=== PATIENT | female | born 1990 | race Caucasian/White ===

== ENCOUNTER 2022-09-23 09:14 | Outpatient (CLI) | payer OTHER, SELFPAY ==
[2022-09-23 13:56] LABS: Cholesterol* 160 mg/dL (90-199)
[2022-09-23 13:57] LABS: HDL Cholesterol* 62 mg/dL (>=50); LDL Cholesterol Calculated 88 mg/dL (<100); Triglycerides* 49 mg/dL (40-149)
[2022-09-23 14:15] LABS: Vitamin D 25 Hydroxy* 34 ng/mL (30-80)
== END 2022-09-23 09:15 | disposition home or self-care (01) ==
PROVIDERS: PCP Physician Assistant Medical; Visit Provider Registered Nurse
DX: Z01.419 Encounter for gynecological examination (general) (routine) without abnormal findings (principal); R53.83 Other fatigue; Z13.6 Encounter for screening for cardiovascular disorders
CPT/HCPCS: 80061; 82306; 84443

== ENCOUNTER 2023-08-18 17:51 | Outpatient (CLI) | payer OTHER, SELFPAY | END 2023-08-18 17:52 | disposition home or self-care (01) | PROVIDERS: PCP Physician Assistant Medical; Referring Provider Physician Assistant Medical; Visit Provider Physician Assistant | DX: R10.9 Unspecified abdominal pain (principal); K59.01 Slow transit constipation | CPT/HCPCS: 87086 ==

== ENCOUNTER 2023-08-23 18:06 | Emergency (ER) | payer OTHER, SELFPAY ==
[2023-08-23 18:13] VITALS: BP 114/69; PULSE 84; RESP 16; TEMP 36.5; O2SAT 99; BMI 29.2
[2023-08-23 18:29] LABS: Appearance Urine Clear (Clear); Bilirubin Urine Negative (Negative); Blood Urine Negative (Negative); Color Urine Yellow (Yellow); Glucose Urine Negative (Negative); Ketones Urine Negative (Negative); Leukocyte Esterase Urine Negative (Negative); Nitrite Urine Negative (Negative); Protein Urine Negative (Negative); Urobilinogen Urine 0.2 (0.2-1.0)
[2023-08-23 18:37] LABS: RBC Urine 0-2 (0-2); Squamous Epithelial Cell Urine Few (None-Few)
--- NOTE | 2023-08-23 19:09 | CRLHL7_ITS ---
For Patients: As a result of the Century Cures Act, medical imaging exams and procedure reports are released immediately into your electronic medical record. You may view this report before your referring provider. If you have questions, please contact your health care provider. INDICATION: abdominal pain, intermittent back pain, history of constipation recently and it has worsened. TECHNIQUE: CT abdomen and pelvis acquired with 83 cc Isovue 370 IV contrast. Permanently recorded images are archived. COMPARISON: None. FINDINGS: Lower chest: Partially imaged bilateral breast implants. Liver: Unremarkable. Normal in size and attenuation. No suspicious masses. Gallbladder and bile ducts: Unremarkable. No stones or inflammation. No biliary dilatation. Pancreas: Unremarkable. No mass or inflammation. Spleen: Unremarkable. Normal in size. No masses. Adrenal glands: Unremarkable. No nodules. Kidneys, Ureters, and Bladder: Unremarkable. No suspicious masses, stones, or hydronephrosis. Unremarkable ureters and bladder. GI tract: Unremarkable. Normal in caliber. No sign of inflammation. Normal appendix. Vasculature: Abdominal aorta is normal in caliber. Mesenteric arteries are patent. Lymph nodes: No lymphadenopathy. Peritoneum/Abdominal Wall: Unremarkable abdominal wall. No free air. Small amount of free fluid in the pelvic cul-de-sac, likely physiologic. Pelvis: IUD in the uterus. Crenulated cyst/follicle in the right ovary. Bones: Unremarkable for age. IMPRESSION: Small amount of free fluid in the pelvic cul-de-sac, likely physiologic, possibly on the basis of a recently ruptured right ovarian cyst/follicle. No other evidence for acute process within the abdomen and pelvis. IUD in the uterus. Please note that all CT scans at this facility use dose modulation, iterative reconstruction, and/or weight-based dosing when appropriate to reduce radiation dose to as low as reasonably achievable. Dictated by Nikunj Crowell MD @ 08/23/2023 9:03:55 PM (Electronically Signed)
--- NOTE | 2023-08-23 19:10 | ED_ITS ---
HPI - Abdominal Pain General Chief Complaint: Abdominal Pain Stated Complaint: Stomach and back pain Time Seen by Provider: 08/23/23 18:39 History of Present Illness HPI narrative: This 32-year-old female reports abdominal pain for the past week or more. She states that the pain is constant and feels like rocks in her lower abdomen and burning in her upper abdomen. Sometimes the pain radiates through to her back. She does not report any fevers. She does not care to eat food. She has had some nausea and diarrhea. She was seen in urgent care about a week or so ago and had an x-ray at that time. She was told that she had constipation. She has been taking some medicine to treat constipation but states that her symptoms have worsened. She states that pain is worse with movement and with walking and sometimes also when attempting to stand up straight. Pain is somewhat relieved when remaining still. Related Data Home Medications Medication Instructions Recorded Confirmed levonorgestrel 21 mcg/24 hours (8 1 device intrauterine ONCE 09/23/22 08/23/23 yrs) 52 mg intrauterine device (Mirena) Previous Rx's Medication Instructions Recorded escitalopram oxalate 10 mg tablet 15 mg (1.5 x 10 mg) PO QDAY #135 12/15/22 (Lexapro) tabs Allergies Allergy/AdvReac Type Severity Reaction Status Date / Time No Known Drug Allergies Allergy Verified 08/23/23 19:39 Review of Systems Status of ROS Reports: 10 or more systems reviewed and unremarkable except as noted in History and below Narrative Constitutional: No fevers, no weight gain or loss. Eyes: No discharge. No vision changes. HENT: No congestion, no sore throat, no ear pain. Cardiovascular: No chest pain, no palpitations. Respiratory: No shortness of breath, no wheezes, no cough. Gastrointestinal: Abdominal pain as described above. Genitourinary: No dysuria, no hematuria. Musculoskeletal: Normal range of motion. Skin: No rashes, no pruritis. Neurological: No dizziness, weakness, sensory change, speech change. Endo/Heme/Allergies: No bruising or bleeding. No polydipsia. Pysch: no suicidality, no anxiety, no insomnia. All other systems reviewed and are negative. [facility] Medical History Medication management ?Z79.899 - Other skilled nursing (current) drug therapy (ICD-10) Pharyngitis ?J02.9 - Acute pharyngitis, unspecified (ICD-10) Normal spontaneous vaginal delivery ?O80 - Encounter for full-term uncomplicated delivery (ICD-10) Chest wall pain, chronic (09/26/13) ?R07.89 - Other chest pain (ICD-10) ?G89.29 - Other chronic pain (ICD-10) Acute coccygeal pain ?M53.3 - Sacrococcygeal disorders, not elsewhere classified (ICD-10) Surgical History History of breast augmentation ?Z98.82 - Breast implant status (ICD-10) Social History Smoking Status: Never smoker How often do you have a drink containing alcohol: never How often do you have six or more drinks on one occasion: Never AUDIT-C Alcohol total score: 0 Non-prescribed substance use: denies use Little interest or pleasure in doing things: not at all Feeling down, depressed, or hopeless: several days Exam Narrative: Exam Narrative: Constitutional: Well-developed, well-nourished, no acute distress. HEENT: Normocephalic, atraumatic. Neck: Normal range of motion. Nontender. Supple. Heart: Regular. No murmurs. Normal rate. Intact distal pulses. Lungs: Clear to auscultation. No chest discomfort. No wheezes, rhonchi, or rales. Abdomen: Normal bowel sounds. Diffuse tenderness throughout the abdomen. Mild rebound tenderness is present. Genitalia: Deferred. Back: No midline tenderness. Normal range of motion. Extremities: Normal range of motion. No injury. Skin: Intact. No rash. Warm. No erythema or pallor. Neurologic: No altered sensation. No weakness. Alert and oriented. Psychiatric: No suicidality. No anxiety or depression. No insomnia. Nursing notes and vitals signs are reviewed. Const: Vital Signs, click to edit/add: Vital Signs - 24 hr 08/23/23 18:13 08/23/23 20:13 Temperature 97.7 F Pulse Rate [Pulse Oximeter] 84 62 Respiratory Rate 16 16 Blood Pressure [Ri ght Upper Arm] 114/69 116/70 Pulse Oximetry 99 100 Oxygen Delivery Me thod Room Air Room Air Course Vital Signs Vital signs: Initial Vital Signs Temperature 97.7 F 08/23/23 18:13 Temperature Source Temporal Artery Scan 08/23/23 18:13 Pulse Rate 84 08/23/23 18:13 Pulse Rhythm Regular 08/23/23 18:13 Respiratory Rate 16 08/23/23 18:13 Blood Pressure 114/69 08/23/23 18:13 Blood Pressure Mean 84 08/23/23 18:13 Blood Pressure Position Sitting 08/23/23 18:13 Pulse Oximetry 99 08/23/23 18:13 Oxygen Delivery Method Room Air 08/23/23 18:13 Vital Signs Temperature 97.7 F 08/23/23 18:13 Pulse Rate 84 08/23/23 18:13 Respiratory Rate 16 08/23/23 18:13 Blood Pressure 114/69 08/23/23 18:13 Pulse Oximetry 99 08/23/23 18:13 Oxygen Delivery Method Room Air 08/23/23 18:13 Temperature 97.7 F 08/23/23 18:13 Pulse Rate 62 08/23/23 20:13 Respiratory Rate 16 08/23/23 20:13 Blood Pressure 116/70 08/23/23 20:13 Pulse Oximetry 100 08/23/23 20:13 Oxygen Delivery Method Room Air 08/23/23 20:13 MDM - Abdominal Pain MDM Narrative Medical decision making narrative: This patient comes in with abdominal pain as described above. A CT scan of the abdomen and pelvis is obtained and this returns with no obvious findings to explain her pain. There is some physiologic fluid in the cul-de-sac which may represent drainage from an ovarian cyst. I did relay these results with the patient. She has normal vital signs and is in no acute distress. She is okay to be discharged home. She did received prescriptions for some tablets of Toradol and [place] from the [facility]. Lab Data Labs: Lab Results 08/23/23 08/23/23 Range/Units 18:21 19:15 WBC 7.99 (4.50-11.00) K/uL RBC 4.60 (4.00-5.20) m/uL Hgb 12.8 (12.0-16.0) gm/dL Hct 37.5 (33.0-51.0) % MCV 82 (80-100) fL MCH 28 (26-34) pg MCHC 34 (32-36) gm/dL RDW Coeff of Harley 12.6 (11.5-15.5) % Plt Count 188 (140-440) K/uL Neut % (Auto) 54.8 (42.0-72.0) % Lymph % (Auto) 36.7 (20-44) % [place] % (Auto) 6.6 (0.0-11.0) % Eos % (Auto) 1.3 (0.0-7.0) % Baso % (Auto) 0.5 (0.0-3.0) % Neut # (Auto) 4.38 (1.7-7.0) K/uL Lymph # (Auto) 2.93 H (0.90-2.90) K/uL [place] # (Auto) 0.50 (0.00-0.90) K/UL Eos # (Auto) 0.10 (0.00-0.50) K/uL Baso # (Auto) 0.04 (0.00-0.30) K/uL Abs Immat Gran (auto) 0.01 (0.00-0.30) K/uL Imm/Tot Granulo (auto) 0.1 % Sodium 139 (135-149) mmol/L Potassium 4.2 (3.6-5.1) mmol/L Chloride 107 (96-114) mmol/L Carbon Dioxide 22 (20-32) mmol/L Anion Gap 10 (7-15) mEq/L BUN 12 (5-24) mg/dL Creatinine 0.8 (0.5-1.5) mg/dL Estimated Creat Clear 85.56 Estimated GFR 99 ml/min Glucose 88 (60-115) mg/dL Calcium 9.1 (8.4-10.6) mg/dL Total Bilirubin 0.7 (0.1-1.5) mg/dL Direct Bilirubin 0.0 (0.0-0.5) mg/dL AST 17 (12-35) U/L ALT 14 (4-35) U/L Alkaline Phosphatase 64 (40-150) U/L C-Reactive Protein 0.5 (0.5-1.0) mg/dL Total Protein 7.2 (6.0-8.3) g/dL Albumin 4.3 (3.3-5.0) g/dL Lipase 99 (23-300) U/L Urine Color Yellow (Yellow) Urine Appearance Clear (Clear) Urine pH 7.0 (5.0-8.5) Ur Specific [place] 1.020 (1.000-1.030) Urine Protein Negative (Negative) Urine Glucose (UA) Negative (Negative) Urine Ketones Negative (Negative) Urine Blood Negative (Negative) Urine Nitrite Negative (Negative) Urine Bilirubin Negative (Negative) Urine Urobilinogen 0.2 (0.2-1.0) Ur Leukocyte Esterase Negative (Negative) Urine RBC 0-2 (0-2) Urine WBC 2-5 (0-5) Ur Squamous Epith Cells Few (None-Few) Urine Bacteria None (None) Imaging Data CT scan - abdomen: Radiologist's impression: Small amount of free fluid in the pelvic cul-de-sac, likely physiologic, possibly on the basis of a recently ruptured right ovarian cyst/follicle. No other evidence for acute process within the abdomen and pelvis. IUD in the uterus. Discharge Plan Discharge Clinical Impression: Abdominal pain Patient Disposition: Home, Self-Care Condition: Stable Additional Instructions: Take medication as needed and directed. Follow up with MD return if symptoms are worsening. Prescriptions: No Action Mirena 20 mcg/24 hours (8 yrs) 52 mg intrauterine device 1 device intrauterine ONCE Rx Instructions: as a single dose escitalopram oxalate [Lexapro] 10 mg tablet 15 mg PO QDAY Qty: 135 2RF Follow Up/Referrals: Mirella Chun PA-C [Primary Care Provider] - Stand Alone Forms: [employer] Info Instructions
[2023-08-23 19:24] LABS: Basophils Absolute Auto 0.04 K/uL (0.00-0.30); Basophils Percent Auto 0.5 % (0.0-3.0); Eosinophils Percent Auto 1.3 % (0.0-7.0); Hematocrit 37.5 % (33.0-51.0); Hemoglobin* 12.8 gm/dL (12.0-16.0); Immature Granulocytes Abs Auto 0.01 K/uL (0.00-0.30); Immature Granulocytes Pct Auto 0.1 %; Lymphocytes Absolute Auto 2.93 K/uL (0.90-2.90); Lymphocytes Percent Auto 36.7 % (20-44); Mean Corpuscular HGB Conc 34 gm/dL (32-36); Mean Corpuscular Hemoglobin 28 pg (26-34); Mean Corpuscular Volume 82 fL (80-100); Monocytes Percent Auto 6.6 % (0.0-11.0); Neutrophils Absolute Auto 4.38 K/uL (1.7-7.0); Neutrophils Percent Auto 54.8 % (42.0-72.0); Platelet Count* 188 K/uL (140-440); RDW Coefficient of Variation % 12.6 % (11.5-15.5); White Blood Count* 7.99 K/uL (4.50-11.00)
[2023-08-23 19:25] LABS: Slide Review Reflex No
[2023-08-23] MEDS: ONDANSETRON 2 MG/ML inj 4 MG IVP (19:31)
[2023-08-23 19:57] LABS: Albumin* 4.3 g/dL (3.3-5.0); Chloride* 107 mmol/L (96-114)
[2023-08-23 19:58] LABS: Potassium* 4.2 mmol/L (3.6-5.1); Sodium* 139 mmol/L (135-149)
[2023-08-23 20:00] LABS: Creatinine* 0.8 mg/dL (0.5-1.5); Est. Creatinine Clearance* 85.56; Estimated Glomerular Filt Rate 99 ml/min
[2023-08-23 20:01] LABS: Alanine Aminotransferase* 14 U/L (4-35); Alkaline Phosphatase* 64 U/L (40-150); Anion Gap 10 mEq/L (7-15); Aspartate Amino Transferase* 17 U/L (12-35); Bilirubin Total* 0.7 mg/dL (0.1-1.5); Blood Urea Nitrogen* 12 mg/dL (5-24); Calcium* 9.1 mg/dL (8.4-10.6); Carbon Dioxide* 22 mmol/L (20-32); Glucose* 88 mg/dL (60-115); Lipase* 99 U/L (23-300); Total Protein* 7.2 g/dL (6.0-8.3)
[2023-08-23 20:04] LABS: C Reactive Protein* 0.5 mg/dL (0.5-1.0)
[2023-08-23 20:13] VITALS: BP 116/70; PULSE 62; RESP 16; O2SAT 100
== END 2023-08-23 21:27 | disposition home or self-care (01) ==
PROVIDERS: Emergency Provider Emergency Medicine Emergency Medical Services; PCP Physician Assistant Medical
DX: R10.9 Unspecified abdominal pain (principal)
CPT/HCPCS: 36415; 74177; 80048; 80076; 81001; 83690; 85025; 86140; 96374; 99283; 99284; J2405; Q9967

== ENCOUNTER 2023-09-02 15:54 | Outpatient (CLI) | payer OTHER, SELFPAY ==
[2023-09-02 19:32] LABS: Chlamydia DNA Amplified* NOT DETECTED (No Detected); GC DNA Amplified* NOT DETECTED (No Detected)
== END 2023-09-02 15:55 | disposition home or self-care (01) ==
LOC: NFLDREF 15:55
PROVIDERS: PCP Physician Assistant Medical; Visit Provider Obstetrics & Gynecology
DX: N73.0 Acute parametritis and pelvic cellulitis (principal); R10.9 Unspecified abdominal pain
CPT/HCPCS: 87491; 87591

== ENCOUNTER 2023-09-05 15:52 | Outpatient (CLI) | payer OTHER, SELFPAY ==
--- NOTE | 2023-09-05 16:00 | CRLHL7_ITS ---
For Patients: As a result of the Century Cures Act, medical imaging exams and procedure reports are released immediately into your electronic medical record. You may view this report before your referring provider. If you have questions, please contact your health care provider. INDICATION: History of a right ovarian cyst. On going back pain. Right lower quadrant pain. TECHNIQUE: Transabdominal and transvaginal pelvic ultrasound. COMPARISON: Correlation is made with an abdominopelvic CT August 23, 2023. FINDINGS: The uterus measures 9.5 x 5.1 x 5.5 cm. There is an intrauterine device appropriately positioned. Normal-sized ovaries without torsion or mass. Small physiologic follicles The right ovary measures 3.7 x 2.4 x 2.0 cm. The left ovary measures 3.6 x 2.4 x 2.5 cm. No free pelvic fluid. IMPRESSION: Normal transabdominal and transvaginal pelvic ultrasound. IUD appropriately positioned. Dictated by Leonides Stout MD @ 09/06/2023 11:27:16 AM (Electronically Signed)
== END 2023-09-05 15:53 | disposition home or self-care (01) ==
PROVIDERS: PCP Physician Assistant Medical; Visit Provider Obstetrics & Gynecology
DX: R10.9 Unspecified abdominal pain (principal); M54.9 Dorsalgia, unspecified
CPT/HCPCS: 76830; 76856

== ENCOUNTER 2023-09-29 09:02 | Outpatient (CLI) | payer OTHER, SELFPAY | END 2023-09-29 09:03 | disposition home or self-care (01) | LOC: FRMREF 09:03 | PROVIDERS: PCP Physician Assistant Medical; Visit Provider Registered Nurse | DX: Z01.419 Encounter for gynecological examination (general) (routine) without abnormal findings (principal); R63.5 Abnormal weight gain | CPT/HCPCS: 84443 ==

== ENCOUNTER 2023-11-18 12:33 | Emergency (ER) | payer OTHER, SELFPAY ==
[2023-11-18 13:13] VITALS: BP 147/82; PULSE 72; RESP 18; TEMP 36.7; O2SAT 100; BMI 28.3
--- NOTE | 2023-11-18 15:47 | ED.GENADULT ---
HPI - General Adult General Chief complaint: Chest Pain Stated complaint: Chest pain, nausea Time Seen by Provider: 11/18/23 15:41 History of Present Illness HPI narrative: Patient is shaking in triage, appears anxious. Reports heart pain and nausea since yesterday that is constant. 33-year-old woman presenting to the emergency department with concern of chest pain. This occurred yesterday and was associated with some nausea initially started while going hard in a [place] workout. This did not involve weight's or hiit-type workout. She does these workouts regularly without difficulty. Is not exactly reproducible. Not really pleuritic. Just feels like somebody is grabbing the left side of her chest. Not really short of breath. She does acknowledge that she probably freaked out. Has been waxing and waning to some degree though longer now persistently present. No leg pain or swelling. No history of arrhythmia or coagulopathy. Does later admit that feels little bit better when she sits forward and worse when she lies back. Also endorses being particularly anxious person Related Data Home Medications Medication Instructions Recorded Confirmed levonorgestrel 21 mcg/24 hours (8 1 device intrauterine ONCE 09/23/22 10/17/23 yrs) 52 mg intrauterine device (Mirena) Previous Rx's Medication Instructions Recorded escitalopram oxalate 10 mg tablet 15 mg (1.5 x 10 mg) PO QDAY #135 09/29/23 (Lexapro) tabs azithromycin 250 mg tablet See Rx Instructions PO .COMPLEX #6 10/17/23 tabs Allergies Allergy/AdvReac Type Severity Reaction Status Date / Time No Known Drug Allergies Allergy Verified 09/29/23 08:12 Review of Systems Status of ROS: Reports: 6 or more systems reviewed and unremarkable except as noted in History and below [facility] Medical History Medication management ?Z79.899 - Other detention (current) drug therapy (ICD-10) Pharyngitis ?J02.9 - Acute pharyngitis, unspecified (ICD-10) Normal spontaneous vaginal delivery ?O80 - Encounter for full-term uncomplicated delivery (ICD-10) Chest wall pain, chronic (09/26/13) ?R07.89 - Other chest pain (ICD-10) ?G89.29 - Other chronic pain (ICD-10) Acute coccygeal pain ?M53.3 - Sacrococcygeal disorders, not elsewhere classified (ICD-10) Surgical History History of breast augmentation ?Z98.82 - Breast implant status (ICD-10) Family History Mother Osteoporosis Social History What is your current living situation?: I presently have a place to live Problems where you live: no known problems In the past 12 months, utilities in danger of being shut off: no In past 12 months, lack of transportation kept you from medical appts, meetings, work, or getting things needed for daily living: no How hard is it for you to pay for the very basics like food, housing, medical care, and heating: not very hard In the past 12 mos, have been you worried that your food would run out before you had money to buy more?: never true In the past 12 mos, the food you bought just didn't last and you didn't have money to buy more?: never true Smoking Status: Never smoker How often do you have a drink containing alcohol: never How often do you have six or more drinks on one occasion: Never AUDIT-C Alcohol total score: 0 Non-prescribed substance use: denies use How often does anyone, including family, friends and others, physically hurt you: never How often does anyone, including family, friends and others, insult or talk down to you: never How often does anyone, including family, friends and others, threaten you with harm: never How often does anyone, including family, friends and others, scream or curse at you: never Little interest or pleasure in doing things: not at all Feeling down, depressed, or hopeless: not at all Exam Narrative: Exam Narrative: Pleasant. Eyes are a little injected. She looks little tense. Mildly anxious. Breathing easily. Lungs are clear equal expansion excursion. There is no supraclavicular crepitus. Heart in a regular rate and rhythm initially I thought I heard a split S1 but on further auscultations does not seem to be present. I am not able to reproduce discomfort although maybe little sore in the epigastrium her xiphoid area. No rashes evident. Skin is warm and dry. Extremities are well perfused without edema. Const: Vital Signs, click to edit/add: Vital Signs - 24 hr 11/18/23 13:13 11/18/23 16:18 11/18/23 16:19 Temperature 98.1 F 97.9 F Pulse Rate [Pulse Oximeter] 72 63 Respiratory Rate 18 20 Blood Pressure [Ri ght Upper Arm] 147/82 H 129/108 H Pulse Oximetry 100 100 100 Oxygen Delivery Me thod Room Air Room Air Documenting provider has reviewed patient's vital signs: yes Course Vital Signs Vital signs: Initial Vital Signs Temperature 98.1 F 11/18/23 13:13 Temperature Source Temporal Artery Scan 11/18/23 13:13 Pulse Rate 72 11/18/23 13:13 Respiratory Rate 18 11/18/23 13:13 Blood Pressure 147/82 H 11/18/23 13:13 Blood Pressure Mean 103 11/18/23 13:13 Pulse Oximetry 100 11/18/23 13:13 Oxygen Delivery Method Room Air 11/18/23 13:13 Vital Signs Temperature 98.1 F 11/18/23 13:13 Pulse Rate 72 11/18/23 13:13 Respiratory Rate 18 11/18/23 13:13 Blood Pressure 147/82 H 11/18/23 13:13 Pulse Oximetry 100 11/18/23 13:13 Oxygen Delivery Method Room Air 11/18/23 13:13 Temperature 97.9 F 11/18/23 16:18 Pulse Rate 63 11/18/23 16:18 Respiratory Rate 20 11/18/23 16:18 Blood Pressure 129/108 H 11/18/23 16:18 Pulse Oximetry 100 11/18/23 16:19 Oxygen Delivery Method Room Air 11/18/23 16:18 Medical Decision Making MDM Narrative Medical decision making narrative: Differential would include pneumothorax or pneumomediastinum, doubtful pulmonary embolus, does not appear to have ischemic cardiovascular event. Did review EKG which looks quite good without ischemic changes. Normal sinus rhythm rate of 68. I suppose strained chordae tendineae could be in differential. Does not have overt signs though of heart failure. Pericarditis? though rather abrupt onset. Esophageal reflux related discomfort? Will begin with a chest x-ray and cardiac labs along with CBC. Labs are reassuring without evidence of cardiac injury or strain. EKG without evidence of pericarditis. Chest x-ray reviewed by me is WNL with normal cardiac silhouette Leonardo overall stable and little improved departed emergency department ahead of me being able to connect with Cardiology. Finally was able to discuss this case with Cardiology. They favor benign etiology. See patient discharge plan Medical Records Medical records reviewed: Yes I reviewed the patient's medical records Lab Data Lab results reviewed: Yes I reviewed the patient's lab results Labs: Lab Results 11/18/23 Range/Units 16:28 WBC 6.46 (4.50-11.00) K/uL RBC 4.85 (4.00-5.20) m/uL Hgb 13.5 (12.0-16.0) gm/dL Hct 40.6 (33.0-51.0) % MCV 84 (80-100) fL MCH 28 (26-34) pg MCHC 33 (32-36) gm/dL RDW Coeff of Harley 12.7 (11.5-15.5) % Plt Count 231 (140-440) K/uL Neut % (Auto) 55.7 (42.0-72.0) % Lymph % (Auto) 36.5 (20-44) % [place] % (Auto) 5.6 (0.0-11.0) % Eos % (Auto) 1.1 (0.0-7.0) % Baso % (Auto) 0.9 (0.0-3.0) % Neut # (Auto) 3.60 (1.7-7.0) K/uL Lymph # (Auto) 2.36 (0.90-2.90) K/uL [place] # (Auto) 0.40 (0.00-0.90) K/UL Eos # (Auto) 0.07 (0.00-0.50) K/uL Baso # (Auto) 0.06 (0.00-0.30) K/uL Abs Immat Gran (auto) 0.01 (0.00-0.30) K/uL Imm/Tot Granulo (auto) 0.2 % D-Dimer Quant (PE/DVT) < 0.27 (0.00-0.50) ug/ml Troponin I < 0.01 L (0.01-0.04) ng/mL NT-Pro-B Natriuret Pep 79 pg/mL ECG Data Attestation: I personally reviewed and interpreted this ECG as follows: (Normal sinus rhythm rate of 68. ) Discharge Plan Discharge Clinical Impression: Atypical chest pain Patient Disposition: Home, Self-Care Condition: Improved Additional Instructions: I think we're in agreement that anxiety made things a little worse but that does not explain initial onset. You may have some inflammation in your chest, possibly pericarditis, that would benefit from regular NSAID for a few days. Maybe with a little bit of food take 600 mg ibuprofen 3 times daily over the next 4-5 days. If pain persisting unchanged as you come up on a week, I would follow-up in primary care to discuss further. If pain seems to be escalating, you're increasingly short of breath maybe have associated fever, feeling lightheaded, please return to the emergency department. I will call you if Cardiology has any further recommendations for you. Prescriptions: No Action Mirena 20 mcg/24 hours (8 yrs) 52 mg intrauterine device 1 device intrauterine ONCE Rx Instructions: as a single dose azithromycin 250 mg tablet See Rx Instructions PO .COMPLEX Qty: 6 0RF Rx Instructions: For 250 mg dose pack: take 500 mg today (day 1), then 250 mg for 4 days (days 2-5) PO escitalopram oxalate [Lexapro] 10 mg tablet 15 mg PO QDAY Qty: 135 3RF Follow Up/Referrals: Mirella Chun PA-C [Primary Care Provider] - Stand Alone Forms: [employer] Info Instructions
--- NOTE | 2023-11-18 16:14 | CRLHL7_ITS ---
For Patients: As a result of the Century Cures Act, medical imaging exams and procedure reports are released immediately into your electronic medical record. You may view this report before your referring provider. If you have questions, please contact your health care provider. INDICATION: Chest pain. TECHNIQUE: Chest 1 views. COMPARISON: None. FINDINGS: Cardiovascular and mediastinum: Heart size and vasculature are normal in caliber and appearance. Lungs and pleural spaces: Lungs are clear. No sign of infiltrate or mass. No sign of pleural effusion. No pneumothorax. Bones and soft tissues: No significant findings. IMPRESSION: No acute or significant findings. Dictated by Uzair Villar MD @ 11/18/2023 6:03:04 PM (Electronically Signed)
[2023-11-18 16:18] VITALS: BP 129/108; PULSE 63; RESP 20; TEMP 36.6; O2SAT 100
[2023-11-18 16:19] VITALS: O2SAT 100
[2023-11-18 16:46] LABS: Basophils Absolute Auto 0.06 K/uL (0.00-0.30); Basophils Percent Auto 0.9 % (0.0-3.0); Eosinophils Absolute Auto 0.07 K/uL (0.00-0.50); Eosinophils Percent Auto 1.1 % (0.0-7.0); Hematocrit 40.6 % (33.0-51.0); Hemoglobin* 13.5 gm/dL (12.0-16.0); Immature Granulocytes Abs Auto 0.01 K/uL (0.00-0.30); Immature Granulocytes Pct Auto 0.2 %; Lymphocytes Absolute Auto 2.36 K/uL (0.90-2.90); Lymphocytes Percent Auto 36.5 % (20-44); Mean Corpuscular HGB Conc 33 gm/dL (32-36); Mean Corpuscular Hemoglobin 28 pg (26-34); Mean Corpuscular Volume 84 fL (80-100); Monocytes Percent Auto 5.6 % (0.0-11.0); Neutrophils Percent Auto 55.7 % (42.0-72.0); Platelet Count* 231 K/uL (140-440); RDW Coefficient of Variation % 12.7 % (11.5-15.5); Red Blood Count 4.85 m/uL (4.00-5.20); White Blood Count* 6.46 K/uL (4.50-11.00)
[2023-11-18 16:48] LABS: Slide Review Reflex No
[2023-11-18 17:09] LABS: D Dimer Quantitative* < 0.27 ug/ml (0.00-0.50); NT Pro B Type NatriureticPept* 79 pg/mL
[2023-11-18 17:11] LABS: Troponin I* < 0.01 ng/mL (0.01-0.04)
== END 2023-11-18 18:13 | disposition home or self-care (01) ==
PROVIDERS: Emergency Provider Family Medicine; PCP Physician Assistant Medical
DX: R07.89 Other chest pain (principal)
CPT/HCPCS: 36415; 71045; 83880; 84484; 85025; 85379; 94761; 99284

== ENCOUNTER 2024-03-25 10:32 | Emergency (ER) | payer OTHER, SELFPAY ==
[2024-03-25 10:35] VITALS: BP 150/81; PULSE 63; RESP 18; TEMP 36.9; O2SAT 99; BMI 29.2
--- NOTE | 2024-03-25 10:48 | US_ITS ---
Patient: RAYNE VIRGEN Facility:?[facility] RIS Patient ID:?[id number] Site Patient ID:?[id number] Site :?[id number] Study:?US-OB Pelvis TV pelvic-03/25/2024 11:53:11 AM Ordering Physician:Shannan Final Report: INDICATION: Two week history of persistent vaginal bleeding status post IUD removal. COMPARISON: 09/05/2023 TECHNIQUE: Endovaginal grayscale and color doppler pelvic ultrasound. FINDINGS: Uterus: Measures 5.9 x 4.5 x 10.0cm. Asymmetrical thickening and heterogeneity of the posterior uterine body myometrium. 2 mm simple cyst in the posterior lower uterine segment. These findings have been described in the setting of adenomyosis. No focal uterine lesion is identified. Multiple nabothian cysts are noted incidentally in the uterine cervix near the external os. Please note that US is insensitive for detection of epithelial lesions of the cervix, compared to physical examination. Endometrial stripe: Measures 3mm. Uniform in thickness. Right Ovary: Measures 2.5 x 2.5 x 4.0cm and 13mL. Incidental note is made of multiple simple right ovarian follicles, the largest measuring 1.6 cm in greatest dimension. Normal color Doppler flow. Left Ovary: Measures 3.7 x 3.4 x 4.7cm and 30mL. Dominant 2.3 cm anechoic unilocular follicle. Normal color Doppler flow. Pelvic fluid: No significant pelvic ascites. Small volume free fluid within physiologic limits of normal. IMPRESSION: Asymmetrically thickened and heterogeneous posterior uterine body myometrium and a small posterior lower uterine segment myometrial cysts may indicate adenomyosis. No other sonographic findings to explain persistent vaginal bleeding status post IUD removal. The endometrial stripe measures 3 mm in greatest thickness. Dictated by Rodríguez Calderon MD @ 03/25/2024 12:31:43 PM Signed by:?Rodríguez Calderon MD @03/25/2024 12:31:43 PM (Electronic Signature)
--- NOTE | 2024-03-25 10:51 | ED.GENADULT ---
HPI - General Adult General Chief complaint: Vaginal Bleeding Stated complaint: IUD removed 2 weeks ago, heavy bleeding/clotting Time Seen by Provider: 03/25/24 10:34 Source: patient Mode of arrival: ambulatory Limitations: no limitations History of Present Illness HPI narrative: 33-year-old female, , coming in today complaining of vaginal bleeding. Patient had a Mirena IUD removed on 03/12/2024, since then she has had which she describes as a heavy period. She states that she soaks a heavy tampon every several hours. However for 2 days now she had about a 4 hour period where she was soaking a super tampon in 15 minutes. She just feels a gush and she has significantly heavy bleed. She also states that she has been passing golf ball size clots. She is not dizzy or lightheaded. She denies chest pain or shortness of breath. Related Data Home Medications Medication Instructions Recorded Confirmed levonorgestrel 21 mcg/24 hr (up to 1 device intrauterine ONCE 09/23/22 03/12/24 8 years) 52 mg intrauterine device (Mirena) Previous Rx's Medication Instructions Recorded escitalopram oxalate 10 mg tablet 15 mg (1.5 x 10 mg) PO QDAY #135 09/29/23 (Lexapro) tabs medroxyprogesterone 10 mg tablet 10 mg PO DIRECTED #40 tabs 03/25/24 (Provera) Allergies Allergy/AdvReac Type Severity Reaction Status Date / Time No Known Drug Allergies Allergy Verified 03/25/24 10:40 Review of Systems Status of ROS: Reports: 10 or more systems reviewed and unremarkable except as noted in History and below [facility] Medical History Medication management ?Z79.899 - Other custodial (current) drug therapy (ICD-10) Pharyngitis ?J02.9 - Acute pharyngitis, unspecified (ICD-10) Normal spontaneous vaginal delivery ?O80 - Encounter for full-term uncomplicated delivery (ICD-10) Chest wall pain, chronic (09/26/13) ?R07.89 - Other chest pain (ICD-10) ?G89.29 - Other chronic pain (ICD-10) Acute coccygeal pain ?M53.3 - Sacrococcygeal disorders, not elsewhere classified (ICD-10) Surgical History History of breast augmentation ?Z98.82 - Breast implant status (ICD-10) Family History Mother Osteoporosis Social History What is your current living situation?: I presently have a place to live Problems where you live: no known problems In the past 12 months, utilities in danger of being shut off: no In past 12 months, lack of transportation kept you from medical appts, meetings, work, or getting things needed for daily living: no How hard is it for you to pay for the very basics like food, housing, medical care, and heating: not very hard In the past 12 mos, have been you worried that your food would run out before you had money to buy more?: never true In the past 12 mos, the food you bought just didn't last and you didn't have money to buy more?: never true Smoking Status: Never smoker Do you use any of these nicotine containing products: None How often do you have a drink containing alcohol: never How often do you have six or more drinks on one occasion: Never AUDIT-C Alcohol total score: 0 Non-prescribed substance use: denies use How often does anyone, including family, friends and others, physically hurt you: never How often does anyone, including family, friends and others, insult or talk down to you: never How often does anyone, including family, friends and others, threaten you with harm: never How often does anyone, including family, friends and others, scream or curse at you: never Little interest or pleasure in doing things: not at all Feeling down, depressed, or hopeless: not at all Exam Narrative: Exam Narrative: Well-nourished well-developed patient in mild distress, anxious and somewhat tearful. Alert and oriented. Answers questions appropriately. Patient speaks in full sentences without needing to catch her breath. HEENT: Normocephalic atraumatic. Pupils are equally round reactive to light. Extraocular muscles are intact. Conjunctivae are moist without any icterus noted. Moist mucous membranes. Cardiovascular: Heart is regular rate and rhythm. Lungs: Clear to auscultation bilaterally. Abdomen: Soft and nontender nondistended with normal bowel sounds. Extremities: Bilateral lower extremities are without edema. Skin: Well perfused. Const: Vital Signs, click to edit/add: Vital Signs - 24 hr 03/25/24 10:35 Temperature 98.5 F Pulse Rate [Right Pulse Oximeter] 63 Respiratory Rate 18 Blood Pressure [Ri ght Upper Arm] 150/81 H Pulse Oximetry 99 Oxygen Delivery Me thod Room Air Course Course ED Course: ML is unremarkable, no signs of anemia. test is negative. Ultrasound: Unremarkable. Vital Signs Vital signs: Initial Vital Signs Temperature 98.5 F 03/25/24 10:35 Temperature Source Temporal Artery Scan 03/25/24 10:35 Pulse Rate 63 03/25/24 10:35 Pulse Rhythm Regular 03/25/24 10:35 Respiratory Rate 18 03/25/24 10:35 Blood Pressure 150/81 H 03/25/24 10:35 Blood Pressure Mean 104 03/25/24 10:35 Blood Pressure Position Sitting 03/25/24 10:35 Pulse Oximetry 99 03/25/24 10:35 Oxygen Delivery Method Room Air 03/25/24 10:35 Vital Signs Temperature 98.5 F 03/25/24 10:35 Pulse Rate 63 03/25/24 10:35 Respiratory Rate 18 03/25/24 10:35 Blood Pressure 150/81 H 03/25/24 10:35 Pulse Oximetry 99 03/25/24 10:35 Oxygen Delivery Method Room Air 03/25/24 10:35 Temperature 98.5 F 03/25/24 10:35 Pulse Rate 63 03/25/24 10:35 Respiratory Rate 18 03/25/24 10:35 Blood Pressure 150/81 H 03/25/24 10:35 Pulse Oximetry 99 03/25/24 10:35 Oxygen Delivery Method Room Air 03/25/24 10:35 Medical Decision Making MDM Narrative Medical decision making narrative: Abnormal uterine bleeding status post Mirena IUD removal. We will put the patient on Provera 10 mg p.o. b.i.d. for a week then b.i.d. for 1 week followed by daily administration she will she has a follow-up with OBGYN. Lab Data Lab results reviewed: Yes I reviewed the patient's lab results Labs: Lab Results 03/25/24 Range/Units 10:48 WBC 6.05 (4.50-11.00) K/uL RBC 5.02 (4.00-5.20) m/uL Hgb 13.9 (12.0-16.0) gm/dL Hct 41.8 (33.0-51.0) % MCV 83 (80-100) fL MCH 28 (26-34) pg MCHC 33 (32-36) gm/dL RDW Coeff of Harley 12.8 (11.5-15.5) % Plt Count 197 (140-440) K/uL Neut % (Auto) 53.2 (42.0-72.0) % Lymph % (Auto) 37.2 (20-44) % Armstrong % (Auto) 7.1 (0.0-11.0) % Eos % (Auto) 1.5 (0.0-7.0) % Baso % (Auto) 0.8 (0.0-3.0) % Neut # (Auto) 3.22 (1.7-7.0) K/uL Lymph # (Auto) 2.25 (0.90-2.90) K/uL Armstrong # (Auto) 0.40 (0.00-0.90) K/UL Eos # (Auto) 0.09 (0.00-0.50) K/uL Baso # (Auto) 0.05 (0.00-0.30) K/uL Abs Immat Gran (auto) 0.01 (0.00-0.30) K/uL Imm/Tot Granulo (auto) 0.2 % HCG, Qual Negative (Negative) Imaging Data Pelvic ultrasound: Attestation: I have reviewed the pertinent imaging results. Radiologist's impression: Study:?US-OB Pelvis TV pelvic-03/25/2024 11:53:11 AM Ordering Physician:Shannan Final Report: INDICATION: Two week history of persistent vaginal bleeding status post IUD removal. COMPARISON: 09/05/2023 TECHNIQUE: Endovaginal grayscale and color doppler pelvic ultrasound. FINDINGS: Uterus: Measures 5.9 x 4.5 x 10.0cm. Asymmetrical thickening and heterogeneity of the posterior uterine body myometrium. 2 mm simple cyst in the posterior lower uterine segment. These findings have been described in the setting of adenomyosis. No focal uterine lesion is identified. Multiple nabothian cysts are noted incidentally in the uterine cervix near the external os. Please note that US is insensitive for detection of epithelial lesions of the cervix, compared to physical examination. Endometrial stripe: Measures 3mm. Uniform in thickness. Right Ovary: Measures 2.5 x 2.5 x 4.0cm and 13mL. Incidental note is made of multiple simple right ovarian follicles, the largest measuring 1.6 cm in greatest dimension. Normal color Doppler flow. Left Ovary: Measures 3.7 x 3.4 x 4.7cm and 30mL. Dominant 2.3 cm anechoic unilocular follicle. Normal color Doppler flow. Pelvic fluid: No significant pelvic ascites. Small volume free fluid within physiologic limits of normal. IMPRESSION: Asymmetrically thickened and heterogeneous posterior uterine body myometrium and a small posterior lower uterine segment myometrial cysts may indicate adenomyosis. No other sonographic findings to explain persistent vaginal bleeding status post IUD removal. The endometrial stripe measures 3 mm in greatest thickness. Discharge Plan Discharge Clinical Impression: Abnormal uterine bleeding (AUB) Patient Disposition: Home, Self-Care Condition: Stable Additional Instructions: I recommend that you call your OB GYNs office on Tuesday morning to set up a follow-up appointment in the next 1-2 weeks. In the meantime, take the progesterone as prescribed, this will slow down your bleeding. Prescriptions: New medroxyprogesterone [Provera] 10 mg tablet 10 mg PO DIRECTED Qty: 40 0RF Rx Instructions: Take 1 tablet 3 times per day for 7 days, followed by 1 tablet 2 times per day for 7 days followed by 1 tablet daily until bleeding stops or you have a follow-up with your OBGYN. No Action Mirena 20 mcg/24 hours (8 yrs) 52 mg intrauterine device 1 device intrauterine ONCE Rx Instructions: as a single dose escitalopram oxalate [Lexapro] 10 mg tablet 15 mg PO QDAY Qty: 135 3RF Follow Up/Referrals: Provider,Not a Local [Primary Care Provider] - Stand Alone Forms: [facility] [employer] Info Instructions
[2024-03-25 10:53] LABS: Basophils Absolute Auto 0.05 K/uL (0.00-0.30); Basophils Percent Auto 0.8 % (0.0-3.0); Eosinophils Absolute Auto 0.09 K/uL (0.00-0.50); Eosinophils Percent Auto 1.5 % (0.0-7.0); Hematocrit 41.8 % (33.0-51.0); Hemoglobin* 13.9 gm/dL (12.0-16.0); Immature Granulocytes Abs Auto 0.01 K/uL (0.00-0.30); Immature Granulocytes Pct Auto 0.2 %; Lymphocytes Absolute Auto 2.25 K/uL (0.90-2.90); Lymphocytes Percent Auto 37.2 % (20-44); Mean Corpuscular HGB Conc 33 gm/dL (32-36); Mean Corpuscular Hemoglobin 28 pg (26-34); Mean Corpuscular Volume 83 fL (80-100); Monocytes Percent Auto 7.1 % (0.0-11.0); Neutrophils Absolute Auto 3.22 K/uL (1.7-7.0); Neutrophils Percent Auto 53.2 % (42.0-72.0); Platelet Count* 197 K/uL (140-440); RDW Coefficient of Variation % 12.8 % (11.5-15.5); Red Blood Count 5.02 m/uL (4.00-5.20); White Blood Count* 6.05 K/uL (4.50-11.00)
[2024-03-25 11:01] LABS: Slide Review Reflex No
[2024-03-25 11:21] LABS: HCG Qualitative Serum* Negative (Negative)
== END 2024-03-25 12:58 | disposition home or self-care (01) ==
LOC: ED 10:55
PROVIDERS: Emergency Provider Family Medicine
DX: N93.9 Abnormal uterine and vaginal bleeding, unspecified (principal)
CPT/HCPCS: 36415; 76856; 84703; 85025; 99284

== ENCOUNTER 2024-06-12 08:00 | Day surgery (SDC) | payer OTHER, SELFPAY ==
[2024-06-12] VITALS (13 sets, daily range): BP systolic 101–110; BP diastolic 57–70; PULSE 57–79; RESP 12–16; TEMP 35.9–36.9; O2SAT 98–100; BMI 31.6
[2024-06-12] MEDS: PHENAZOPYRIDINE HCL 200 MG TABLET PO (07:47)
[2024-06-12 08:34] LABS: Hemoglobin* 12.5 gm/dL (12.0-16.0)
[2024-06-12] MEDS: SODIUM CHLORIDE 0.9 % (FLUSH) 10 ML SYRINGE IVF (08:38)
[2024-06-12] MEDS: LACTATED RINGERS 1000 ML 1,000 ML 100 ML IV (08:38)
[2024-06-12 08:51] LABS: Ur HCG Qualitative* Negative (Negative)
--- NOTE | 2024-06-12 09:10 | W.PM.H&PU ---
History & Physical Update History & Physical Update H&P Reviewed and patient assessed: No changes noted H&P Updates: Leonardo is a 33-year-old seen in preop prior to planned bilateral laparoscopic salpingectomy and retropubic mid urethral sling. She is status post H&P by February, please see this note for complete details. Reviewed plan surgical steps in detail. We then reviewed risks and benefits of surgery. With regard to surgical sterilization, we discussed the irreversible nature of the procedure with risk of regret in addition to bleeding, infection, damage to surrounding structures and medical complications of surgery/anesthesia such as VTE, heart attack, stroke. With regard to sling, we discussed risks including suboptimal improvement in DOYLE, urinary retention (requiring reoperation of severe), transient difficulty voiding, urinary tract infection, mesh exposure/erosion, infection, bleeding and damage to surrounding structures (namely the bladder). Explained she will complete a formal trial of void after the surgery to ensure appropriate emptying. All questions answered. Written consent was obtained. Preoperative labs reviewed and are within normal limits, UPT negative.
--- NOTE | 2024-06-12 09:20 | P.GYNPRC_ITS ---
Procedure Note Date of procedure: 06/12/24 Will [facility] bill your pro fee for this procedure?: Yes Pre-op diagnosis: Undesired fertility Stress urinary incontinence Post-op diagnosis: Undesired fertility Right adnexal adhesions Stress urinary incontinence Procedure: Laparoscopic bilateral salpingectomy Right oophorectomy Retropubic mid urethral sling (tension-free transvaginal tape) Anesthesia: GETA Complications: None Surgeon: Mrago Bates MD Professional Bondsman: Pratima Hernandez Estimated blood loss (mL): 100 IV fluids (mL): 1,000 Urine Output (mL): 500 Pathology: specimen obtained, sent to pathology Condition: stable Disposition: same day Procedure Description: Patient was taken to the operating room with IV running. She was positioned in dorsal lithotomy position with her legs fully supported in Yellowfin stirrups. She received 2g of ancef for surgical antibiotic prophylaxis. General anesthesia was administered. She was prepped and draped in the usual sterile fashion. A surgical time out was held to confirm patient and procedure. A 5 mm infraumbilical incision was made with a scalpel and carried down to the underlying layer of fascia with the hemostat. The 5 mm Fios Kii trocar was assembled with laparoscope within, and insufflator attached. While tenting up the abdomen manually, the trocar was passed through the anterior abdominal wall into the peritoneal cavity. Trocar was removed. Pneumoperitoneum was achieved, where careful attention was paid below site of entry - no injury or bleeding noted. Upper abdominal survey was completed, revealing normal anatomy. Patient was put into Trendelenburg, pelvic survey noted normal uterus, bilateral fallopian tubes and ovaries. There was adhesive disease noted between the right distal fallopian tube and fimbriae and ovary. Two additional port sites were created, first in the right lower quadrant 2cm superior and medial to the ASIS. 5mm skin incision was made and trocar advanced under direct visualization with rotation and gentle pressure. Careful attention was paid to avoid the inferior epigastric vessels, superficial skin vasculature and the bowel on entry. Obturator removed, balloon inflated. The same procedure was completed on the left. Attention was first turned to the right fallopian tube, which was sequentially ligated and transected from the mesosalpinx using the Ligasure cautery device. We proceeded from the fimbriated end, where care was made to hug the tube but was limited by adhesions noted between the distal tube/fimbriae and the ovary. Despite careful dissection, it became apparent that the right ovarian pedicle was compromised due to this adhesive disease as the salpingectomy proceeded on the right. Ultimately, the dissection continued and the tube was amputated that the right cornua. Bleeding was noted at the edge of the proximal ovary near the site of ovarian vessels, where additional hemostasis was achieved with ligasure coagulation. Given compromised blood supply to the right ovary and ongoing bleeding, decision was made to proceed with right oophorectomy. The right ureter was easily visualized transperitoneally and noted to be well away from site of planned dissection. The uteroovarian ligament was sequentially ligated and transected with Ligasure device. The right ovarian pedicle was ligated and transected to complete oophorectomy. Excellent hemostasis was noted. Attention was then turned to the left fallopian tube, where the mesosalpinx was sequentially ligated and transected working from the distal tubal fimbriae to the left uterine cornua. The left tube was amputated at the right uterine cornua. Both fallopian tubes were removed through 5mm trocars. The umbilical incision was extended slightly and trocar removed, where 10mm bag could then be passed intraperitoneally. The right ovary was secured and removed via laparo scopic bag. All specimens were noted to be removed. The extended umbilical fascia site was noted to be 10mm in size, where closure was performed in the usual fashion with a Gaetano Jazmyn and single additional interrupted stitch with 0 vicryl. The pelvis was once again inspected, where excellent hemostasis noted. Remaining laparoscopic ports were removed under direct visualization. The skin was closed in running subcuticular fashion with 3-0 monocryl. Attention was then turned to the TVT portion of the case. The mons was marked in the midline with a marker, extending from just above the clitoral cain in the midline to just above the pubic symphysis. A virginia was made approximately 2 cm just to the right and to the left of the midline, just over the pubic bone. 30 mL of saline was injected into the retropubic space just behind the pubic bone bilaterally. A stab incision was made on each of these li. A weighted speculum was placed in the vagina. The anterior vaginal wall was grasped in the midline 1 cm beneath the urethral meatus with an Allis clamp, and a 2nd Allis clamp was placed at the urethrovesical junction. The intervening anterior vaginal wall was infiltrated with 1% lidocaine with dilute epinephrine, carrying this infiltration to the pubic bone bilaterally. A 1.5 cm incision was made in the anterior vaginal wall, and Metzenbaum scissors were used to dissect the subepithelial tunnel from that incision to the pubic bone, both to the right and the left of the urethra. Hemostasis was achieved with electrocautery as needed. A rigid catheter guide was placed inside a 16 Maltese urinary catheter, this was inserted into the bladder. Attention was first turned to placement of the right trocar. The trocar was placed within the blue plastic sling sheath. The trocar tip was inserted through the vaginal subepithelial tunnel on the patient's right side, and slowly guided upwards just behind the posterior aspect of the pubic bone, until the tip of the trocar was guided through the stab incision on the patient's right side. The bladder was deviated to the patient's left with the rigid catheter guide during this time. The plastic sheath was disconnected from the trocar, and the tip was grasped with hemostat. The trocar was then placed within the blue plastic sheath at the other end of the mesh, ensuring proper orientation of the mesh. The trocar tip was inserted through the vaginal subepithelial tunnel on the patient's left side, and slowly guided upward just behind is posterior aspect of the pubic bone, until the tip of the trocar was guided through the stab incision on the patient's left side. The bladder was deviated to the patient's right with the rigid catheter guide during this time. The plastic sheath was again disconnected from the trocar, and the tip was grasped with a hemostat. Cystoscopy was then performed, revealing no injury to the bladder mucosa and the plastic sheaths were found to be freely movable outside the bladder dome. Complete bladder survey was negative, characteristic images obtained. Stevens catheter was again inserted. The blue plastic sheaths were pulled through the stab incisions just above the pubic bone, and the mesh was tensioned over a #9 Hegar dilator. Mesh was adjusted as needed until appropriate support was provided while maintaining tension free technique. The mesh was trimmed to beneath the skin on her abdomen, and the sites were closed with a single stitch of 3-0 monocryl and surgical glue. The vaginal incision was closed with a running, locked stitch of 2 0 Vicryl. Laparoscopic incisions were reinforced with superficial surgical glue. Patient tolerated procedure well. She was taken to recovery area in stable condition.
[2024-06-12] MEDS: CEFAZOLIN 2 GM INJ IVP (10:19)
[2024-06-12] MEDS: 0.9 % SODIUM CHLORIDE 50 ml INJECTION (10:30)
--- NOTE | 2024-06-12 12:12 | W.ANESCHARGE ---
Anesthesia Charges Start Date/Time Anesthesia Start Date: 06/12/24 Anesthesia Start Time: 10:04 Stop Date/Time Anesthesia Stop Date: 06/12/24 Anesthesia Stop Time: 12:11
--- NOTE | 2024-06-12 12:15 | W.ANESCHARGE ---
Anesthesia Charges Start Date/Time Anesthesia Start Date: 06/12/24 Anesthesia Start Time: 10:04 Stop Date/Time Anesthesia Stop Date: 06/12/24 Anesthesia Stop Time: 12:11
[2024-06-12] MEDS: IBUPROFEN 600 MG TABLET PO (12:56)
[2024-06-12] MEDS: OXYCODONE 5 MG TABLET PO (14:01)
--- NOTE | 2024-06-12 14:29 | SUR.PHASEII ---
Flushed urinary catheter with 300 cc normal saline at 1350. Pt able to urinate right after catheter was flushed. 400cc orange urine voided in comode. Informed Dr. Bates. Pt also voided in toilet one time before discharge.
== END 2024-06-12 14:32 | disposition home or self-care (01) ==
LOC: OR 08:01
PROVIDERS: PCP Registered Nurse; Visit Provider Obstetrics & Gynecology
PROC: (CPT 58661; principal; 2024-06-12 09:15)
PROC: (CPT 57288; 2024-06-12 09:15)
DX: Z30.2 Encounter for sterilization (principal); N39.3 Stress incontinence (female) (male)
CPT/HCPCS: 58661; 57288; 00840; 00851; 36415; 81025; 85018; 86850; 86900; 86901; 88305; A4344; A9270; J0330; J0690; J1100; J1885; J2405; J2704; J3010; J7120

== ENCOUNTER 2024-07-02 15:40 | Outpatient (CLI) | payer OTHER, SELFPAY | END 2024-07-02 15:41 | disposition home or self-care (01) | LOC: NFLDREF 07-05 12:14 | PROVIDERS: Visit Provider Nurse Practitioner Family | DX: R35.0 Frequency of micturition (principal) | CPT/HCPCS: 87086 ==

== ENCOUNTER 2024-10-10 11:56 | Outpatient (CLI) | payer OTHER, SELFPAY | END 2024-10-10 11:57 | disposition home or self-care (01) | LOC: NFLDREF 11:59 | PROVIDERS: PCP Physician Assistant Medical; Visit Provider Advanced Practice Midwife | DX: N93.9 Abnormal uterine and vaginal bleeding, unspecified (principal); R63.5 Abnormal weight gain | CPT/HCPCS: 84443 ==

== ENCOUNTER 2025-02-19 07:06 | Outpatient (CLI) | payer OTHER, SELFPAY ==
--- NOTE | 2025-02-19 07:15 | CRLHL7_ITS ---
For Patients: As a result of the 21st Century Cures Act, medical imaging exams and procedure reports are released immediately into your electronic medical record. You may view this report before your referring provider. If you have questions, please contact your health care provider. EXAM: MRI OF THE LEFT KNEE, WITHOUT CONTRAST CLINICAL INDICATION: Left knee pain. COMPARISON PLAIN FILMS: None available at time of interpretation. COMPARISON CROSS-SECTIONAL IMAGING STUDIES: None available at time of interpretation. TECHNICAL: Axial, sagittal and coronal T1, PD, PD FS and T2 FS images. Knee coil. FINDINGS: MEDIAL COMPARTMENT: Medial Meniscus: Normal size and morphology without tear. Articular Cartilage: Articular surfaces appear smooth without focal articular cartilage defect or subchondral marrow changes. - LATERAL COMPARTMENT: Lateral Meniscus: Normal size and morphology without tear. Articular Cartilage: Articular surfaces appear smooth without focal articular cartilage defect or subchondral marrow changes. - PATELLOFEMORAL COMPARTMENT: Articular Cartilage: 0.2 cm full-thickness chondral fissure in the patellar apex (grade 4). Mild to moderate chondral thinning and fissuring in the medial patellar facet and the central trochlear groove (grade 2-3). - CRUCIATE LIGAMENTS: Anterior Cruciate Ligament: Normal. Posterior Cruciate Ligament: Normal. - MEDIAL COLLATERAL LIGAMENT AND POSTEROMEDIAL CORNER COMPLEX: Medial Collateral Ligament: Normal. Medial Head of the Gastrocnemius and Semimembranosus Tendons: Normal. - LATERAL COLLATERAL LIGAMENT COMPLEX AND POSTEROLATERAL CORNER COMPLEX: Fibular Collateral Ligament: Normal. Distal Biceps Femoris Tendon Complex: Normal. Iliotibial Band: Normal. Popliteus Tendon: Normal. Posterolateral Corner Capsule: Normal. - EXTENSOR MECHANISM: Distal Quadriceps Tendon: Normal. Patellar Tendon: Normal. Medial Patellar Retinaculum and Medial Patellofemoral Ligament: Normal. Lateral Patellar Retinaculum: Normal. Normal patellar alignment. No patella ye. Normal trochlear depth. Normal lateral trochlear inclination. - JOINT SPACE: Effusion: Trace joint effusion. Tiny popliteal cyst. Joint Bodies: None seen. - OSSEOUS STRUCTURES: No fracture, marrow edema or marrow replacement process. - PERIARTICULAR SOFT TISSUES: Periarticular Cysts or Ganglia: None. Bursae: No prepatellar, superficial infrapatellar, deep infrapatellar, pes anserinus or semimembranosus/MCL bursitis. Musculature: No muscle atrophy or muscle edema. Subcutaneous and Soft Tissues: No subcutaneous or soft tissue mass, edema or fluid collection. Neurovascular Structures: Normal. IMPRESSION: 1. 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 2. Trace knee joint effusion and tiny popliteal cyst. Dictated by Jose Daniel Lehman MD @ 02/19/2025 3:57:27 PM (Electronically Signed)
== END 2025-02-19 07:07 | disposition home or self-care (01) ==
PROVIDERS: PCP Physician Assistant Medical; Visit Provider Physician Assistant Medical
DX: M25.562 Pain in left knee (principal); M22.42 Chondromalacia patellae, left knee; M25.462 Effusion, left knee; M71.22 Synovial cyst of popliteal space [Baker], left knee
CPT/HCPCS: 73721

== ENCOUNTER 2025-09-03 07:10 | Outpatient (CLI) | payer OTHER, SELFPAY | END 2025-09-03 07:11 | disposition home or self-care (01) | LOC: NFLDREF 09-05 09:49 | PROVIDERS: PCP Physician Assistant Medical; Referring Provider Physician Assistant Medical; Visit Provider Physician Assistant Medical | DX: Z00.00 Encounter for general adult medical examination without abnormal findings (principal); Z86.39 Personal history of other endocrine, nutritional and metabolic disease | CPT/HCPCS: 80053; 80061; 82306; 84443 ==